=== PATIENT | male | born 1950 | race Two or more races ===

== ENCOUNTER 2021-08-23 10:09 | Inpatient (IN) | payer OTHER, BC ==
[2021-08-23] MEDS ORDERED: PANTOPRAZOLE SODIUM 40 MG VIAL IVPUSH ONE (10:43)
[2021-08-23] MEDS ORDERED: PANTOPRAZOLE SODIUM 40 MG VIAL ONE (10:58)
[2021-08-23 11:02] LABS: BASO % 0.5 % (0-2.0); EOS % 0.2 % (0-4.5); HEMATOCRIT 43.3 % (35.4-49); HEMOGLOBIN 14.3 GM/dL (11.7-16.9); LYMPH % 5.3 % (8-40); MCH 29.7 pg (25.7-33.7); MCHC 33.1 g/dl (32.0-35.9); MEAN CELL VOLUME 89.9 fl (80-96); MEAN PLT VOLUME 10.8 fl (7.5-11.1); MONO % 3.5 % (3.8-10.2); NEUT % 90.5 % (42.8-82.8); PLATELET COUNT 204 10^3/uL (134-434); RBC 4.82 M/mm3 (4.00-5.60); RDW 14.3 % (11.9-15.9); WHITE BLOOD COUNT 15.2 K/mm3 (4.0-10.0)
[2021-08-23 11:09] LABS: INR 1.5 (0.83-1.09); PROTHROMBIN TIME (PATIENT) 17.3 SEC (9.7-13.0)
[2021-08-23 11:28] LABS: CHLORIDE 105 mmol/L (98-107); SODIUM 139 mmol/L (136-145)
[2021-08-23 11:31] LABS: ANION GAP 5 MMOL/L (8-16); BLOOD UREA NITROGEN 26.9 mg/dL (7-18); CALCIUM 8.6 mg/dL (8.5-10.1); CO2 28 mmol/L (21-32); GLUCOSE,RANDOM 203 mg/dL (74-106); MAGNESIUM 2.4 mg/dL (1.8-2.4)
[2021-08-23 11:33] LABS: SGPT/ALT 35 U/L (13-61)
[2021-08-23 11:34] LABS: SGOT/AST 38 U/L (15-37)
[2021-08-23 11:36] LABS: BILIRUBIN,TOTAL 3.9 mg/dL (0.2-1); TOT PROT 6.4 g/dl (6.4-8.2)
[2021-08-23 11:38] LABS: ALK PHOS 126 U/L (45-117)
[2021-08-23] MEDS ORDERED: CEFTRIAXONE 1,000 MG in DEXTROSE 5%-WATER - 50 ML IVPB ONE (11:53)
[2021-08-23] MEDS ORDERED: AZITHROMYCIN IVPB 500 MG in DEXTROSE 5%-WATER - 250 ML IVPB ONE (11:53)
[2021-08-23] MEDS ORDERED: CEFTRIAXONE 1 GM/50 ML BAG ONE (12:08)
[2021-08-23] MEDS ORDERED: AZITHROMYCIN IVPB 500 MG/250 ML BAG IVPB ONE (12:08)
[2021-08-23] MEDS ORDERED: FUROSEMIDE 40 MG/4 ML INJECTABLE VIAL IVPUSH ONE (13:15)
[2021-08-23] MEDS ORDERED: FUROSEMIDE 40 MG/4 ML INJECTABLE VIAL ONE (13:18)
[2021-08-23 14:31] LABS: LACTIC ACID 2.1 mmol/L (0.4-2.0)
[2021-08-23 17:14] VITALS: BMI 23.0
[2021-08-23] MEDS ORDERED: CHLORHEXIDINE GLUCONATE 4% CLEANSER FOR DECOLONIZATION TP SCH (22:00)
[2021-08-23] MEDS: MUPIROCIN 2% TOPICAL OINTMENT FOR DECOLONIZATION NS SCH (22:33)
[2021-08-24 07:38] LABS: BASO % 0.8 % (0-2.0); EOS % 0.9 % (0-4.5); HEMATOCRIT 41.1 % (35.4-49); LYMPH % 11.2 % (8-40); MCH 30.4 pg (25.7-33.7); MEAN CELL VOLUME 89.3 fl (80-96); MEAN PLT VOLUME 10.8 fl (7.5-11.1); MONO % 6.8 % (3.8-10.2); NEUT % 80.3 % (42.8-82.8); PLATELET COUNT 206 10^3/uL (134-434); WHITE BLOOD COUNT 12.9 K/mm3 (4.0-10.0)
[2021-08-24 07:54] LABS: ALBUMIN 2.9 g/dl (3.4-5.0); BLOOD UREA NITROGEN 30.9 mg/dL (7-18); CALCIUM 8.9 mg/dL (8.5-10.1); MAGNESIUM 2.3 mg/dL (1.8-2.4)
[2021-08-24 07:57] LABS: CREATININE 2.1 mg/dL (0.55-1.3); PHOSPHOROUS 3.4 mg/dL (2.5-4.9)
[2021-08-24 07:59] LABS: BILIRUBIN,TOTAL 2.1 mg/dL (0.2-1); TOT PROT 6.4 g/dl (6.4-8.2)
[2021-08-24 09:33] LABS: BILIRUBIN,DIRECT 0.6 mg/dL (0.0-0.2)
[2021-08-24] MEDS ORDERED: PANTOPRAZOLE 40 MG TABLET PO SCH (10:00)
[2021-08-24] MEDS ORDERED: LOSARTAN POTASSIUM 50 MG TABLET PO SCH (11:30)
[2021-08-24] MEDS ORDERED: amLODIPine BESYLATE 10 MG TABLET (FP) PO SCH (11:30)
[2021-08-24] MEDS: MUPIROCIN 2% TOPICAL OINTMENT FOR DECOLONIZATION NS SCH (11:52)
[2021-08-24] MEDS ORDERED: ROSUVASTATIN CA 20 MG TABLET PO SCH (22:00)
[2021-08-24 22:37] VITALS: BP 138/75; PULSE 108; TEMP 99.2
== END 2021-08-24 21:30 | disposition short-term general hospital (02) | DRG 280 ==
LOC: JER 10:09 → JERBED 13:42 → JICU 16:01
PROVIDERS: ADMIT Internal Medicine; ATTEND Internal Medicine
DX: I21.4 Non-ST elevation (NSTEMI) myocardial infarction (principal); J81.0 Acute pulmonary edema; K92.0 Hematemesis; N17.9 Acute kidney failure, unspecified; E78.5 Hyperlipidemia, unspecified; R79.89 Other specified abnormal findings of blood chemistry; D72.829 Elevated white blood cell count, unspecified; I25.10 Atherosclerotic heart disease of native coronary artery without angina pectoris; I12.9 Hypertensive chronic kidney disease with stage 1 through stage 4 chronic kidney disease, or unspecified chronic kidney disease; N18.9 Chronic kidney disease, unspecified; Z95.5 Presence of coronary angioplasty implant and graft
CPT/HCPCS: 36415; 71045-TC-FY; 71250-TC; 76700-TC; 80053; 82248; 82272; 82977; 83605; 83735; 83880; 84100; 84484; 85025; 85610; 86850; 86900; 86901; 87040; 93005; 93010; 99285-25; C9803-CS; U0003; U0005

== ENCOUNTER 2021-09-29 05:18 | Inpatient (IN) | payer OTHER, BC ==
[2021-09-29] MEDS: ALBUTEROL SO4 2.5/IPRATROPIUM 0.5 INH SOL 3 ML VIAL.NEB. NEB SCH (06:23)
[2021-09-29 06:34] LABS: HEMATOCRIT 35.1 % (35.4-49); HEMOGLOBIN 11.3 GM/dL (11.7-16.9); MCH 29.1 pg (25.7-33.7); MEAN CELL VOLUME 90.7 fl (80-96); RBC 3.87 M/mm3 (4.00-5.60); WHITE BLOOD COUNT 16.8 K/mm3 (4.0-10.0)
[2021-09-29 06:35] LABS: BASO % 0.1 % (0-2.0); LYMPH % 5.8 % (8-40); MCHC 32.1 g/dl (32.0-35.9); MEAN PLT VOLUME 10.3 fl (7.5-11.1); MONO % 3.3 % (3.8-10.2); NEUT % 90.8 % (42.8-82.8); PLATELET COUNT 292 10^3/uL (134-434); RDW 15.5 % (11.9-15.9)
[2021-09-29] MEDS ORDERED: FUROSEMIDE 40 MG/4 ML INJECTABLE VIAL IVPUSH ONE (06:48)
[2021-09-29 06:56] LABS: CALCIUM 8.6 mg/dL (8.5-10.1)
[2021-09-29 07:02] LABS: BILIRUBIN,TOTAL 1.3 mg/dL (0.2-1); TOT PROT 6.2 g/dl (6.4-8.2)
[2021-09-29] MEDS ORDERED: FUROSEMIDE 40 MG/4 ML INJECTABLE VIAL ONE ×2 (08:14→15:25)
[2021-09-29 08:18] LABS: CREATININE 2.8 mg/dL (0.55-1.3); N-TERMINAL BNP 46989.7 pg/ml (5-125)
[2021-09-29] MEDS ORDERED: AMIODARONE HCL 400 MG PO SCH (10:30)
[2021-09-29] MEDS ORDERED: AMIODARONE HCL 200 MG TABLET PO SCH (11:00)
[2021-09-29] MEDS ORDERED: NITROGLYCERIN 25MG/D5W 250ML 25 MG/250 ML ML IVPB SCH (11:15)
[2021-09-29 11:22] LABS: MAGNESIUM 2.3 mg/dL (1.8-2.4)
[2021-09-29 11:27] LABS: PHOSPHOROUS 3.6 mg/dL (2.5-4.9)
[2021-09-29] MEDS ORDERED: predniSONE 20 MG TABLET (UD) PO SCH (11:45)
[2021-09-29] MEDS ORDERED: SEVELAMER CARBONATE 800 MG TAB (FP) PO SCH (12:00)
[2021-09-29] MEDS ORDERED: predniSONE 20 MG TABLET (UD) ONE (12:16)
[2021-09-29] MEDS ORDERED: AMIODARONE HCL 200 MG TABLET ONE (12:16)
[2021-09-29] MEDS ORDERED: HEPARIN NA (PORCINE) 5,000 UNITS/ML 1ML VIAL ONE (12:17)
[2021-09-29] MEDS: HEPARIN NA (PORCINE) 5,000 UNITS/ML 1ML VIAL SQ SCH ×3 (12:23→21:29)
[2021-09-29] MEDS: SEVELAMER CARBONATE 800 MG TAB (FP) PO SCH ×3 (12:23→17:47)
[2021-09-29 12:35] LABS: PH,URINE 6.5 (5.0-8.0); URINE APPEARANCE CLEAR; URINE BILIRUBIN NEGATIVE (NEGATIVE); URINE COLOR YELLOW; URINE GLUCOSE (UA) NEGATIVE (NEGATIVE); URINE KETONE NEGATIVE (NEGATIVE); URINE LEUK ESTERASE NEGATIVE (NEGATIVE); URINE NITRITE NEGATIVE (NEGATIVE); URINE PROTEIN NEGATIVE (NEGATIVE); URINE UROBILINOGEN 0.2 mg/dL (0.2-1.0)
[2021-09-29 12:59] LABS: ERYTHROCYTE SEDIMENTATION RATE 7 mm/hr (0-20)
[2021-09-29] MEDS ORDERED: ISOSORBIDE DINITRATE 10 MG TABLET PO SCH (13:00)
[2021-09-29] MEDS ORDERED: FUROSEMIDE 40 MG/4 ML INJECTABLE VIAL IVPUSH SCH (14:00)
[2021-09-29] MEDS: NITROGLYCERIN 25MG/D5W 250ML 25 MG/250 ML ML IVPB SCH (16:19)
[2021-09-29] MEDS: AMIODARONE HCL 200 MG TABLET PO SCH (21:29)
[2021-09-29] MEDS: CHLORHEXIDINE GLUCONATE 4% CLEANSER FOR DECOLONIZATION TP SCH (21:29)
[2021-09-29] MEDS: CARVEDILOL 6.25 MG TABLET (FP) PO SCH (21:29)
[2021-09-29] MEDS: MUPIROCIN 2% TOPICAL OINTMENT FOR DECOLONIZATION NS SCH (21:29)
[2021-09-29] MEDS: ATORVASTATIN CA 80 MG TABLET (FP) PO SCH (21:29)
[2021-09-29] MEDS ORDERED: CARVEDILOL 6.25 MG TABLET (FP) PO SCH (22:00)
[2021-09-29] MEDS ORDERED: CARVEDILOL 3.125 MG TABLET (FP) PO SCH (22:00)
[2021-09-29] MEDS ORDERED: ATORVASTATIN CA 80 MG TABLET (FP) PO SCH (22:00)
[2021-09-30] MEDS: HEPARIN NA (PORCINE) 5,000 UNITS/ML 1ML VIAL SQ SCH ×3 (06:41→21:49)
[2021-09-30] MEDS: FUROSEMIDE 40 MG/4 ML INJECTABLE VIAL IVPUSH SCH ×2 (06:41→14:45)
[2021-09-30 07:14] LABS: BASO % 0.1 % (0-2.0); EOS % 0.1 % (0-4.5); HEMATOCRIT 30.4 % (35.4-49); HEMOGLOBIN 10.1 GM/dL (11.7-16.9); MCH 29.3 pg (25.7-33.7); MEAN CELL VOLUME 88.8 fl (80-96); MEAN PLT VOLUME 10.3 fl (7.5-11.1); MONO % 7.4 % (3.8-10.2); NEUT % 80.4 % (42.8-82.8); PLATELET COUNT 228 10^3/uL (134-434); RBC 3.43 M/mm3 (4.00-5.60); RDW 15.7 % (11.9-15.9); WHITE BLOOD COUNT 9.6 K/mm3 (4.0-10.0)
[2021-09-30 07:24] LABS: INR 1.2 (0.83-1.09); PROTHROMBIN TIME (PATIENT) 13.8 SEC (9.7-13.0)
[2021-09-30 07:38] LABS: CALCIUM 8.6 mg/dL (8.5-10.1)
[2021-09-30 07:40] LABS: ALBUMIN 2.7 g/dl (3.4-5.0); BLOOD UREA NITROGEN 59.4 mg/dL (7-18); MAGNESIUM 2.5 mg/dL (1.8-2.4)
[2021-09-30 07:41] LABS: TOT PROT 5.7 g/dl (6.4-8.2)
[2021-09-30 07:42] LABS: CREATININE 2.7 mg/dL (0.55-1.3); PHOSPHOROUS 4.2 mg/dL (2.5-4.9)
[2021-09-30] MEDS: SEVELAMER CARBONATE 800 MG TAB (FP) PO SCH ×3 (08:38→17:30)
[2021-09-30] MEDS: MUPIROCIN 2% TOPICAL OINTMENT FOR DECOLONIZATION NS SCH ×2 (09:15→21:49)
[2021-09-30] MEDS: CARVEDILOL 6.25 MG TABLET (FP) PO SCH ×2 (09:16→21:49)
[2021-09-30] MEDS: predniSONE 20 MG TABLET (UD) PO SCH (09:16)
[2021-09-30] MEDS: ASPIRIN COATED 81 MG TABLET.EC PO SCH (09:16)
[2021-09-30] MEDS: AMIODARONE HCL 200 MG TABLET PO SCH ×2 (09:16→21:49)
[2021-09-30] MEDS ORDERED: ASPIRIN COATED 81 MG TABLET.EC PO SCH (10:00)
[2021-09-30] MEDS ORDERED: FUROSEMIDE 40 MG/4 ML INJECTABLE VIAL IVPUSH SCH (10:00)
[2021-09-30] MEDS: SODIUM ZIRCONIUM CYCLOSILICATE (LOKELMA) 5 GM PACKET PO SCH ×2 (12:00→21:49)
[2021-09-30] MEDS ORDERED: SODIUM ZIRCONIUM CYCLOSILICATE (LOKELMA) 5 GM PACKET PO SCH (12:30)
[2021-09-30] MEDS: NITROGLYCERIN 25MG/D5W 250ML 25 MG/250 ML ML IVPB SCH (16:05)
[2021-09-30] MEDS: ATORVASTATIN CA 80 MG TABLET (FP) PO SCH (21:49)
[2021-09-30] MEDS: CHLORHEXIDINE GLUCONATE 4% CLEANSER FOR DECOLONIZATION TP SCH (21:49)
[2021-10-01] MEDS ORDERED: hydrALAZINE HCL 20 MG/ML VIAL IVPUSH ONE (02:54)
[2021-10-01] MEDS: HEPARIN NA (PORCINE) 5,000 UNITS/ML 1ML VIAL SQ SCH ×3 (06:24→21:41)
[2021-10-01] MEDS: FUROSEMIDE 40 MG/4 ML INJECTABLE VIAL IVPUSH SCH ×2 (06:24→15:00)
[2021-10-01 07:03] LABS: BASO % 0.2 % (0-2.0); HEMATOCRIT 31.1 % (35.4-49); LYMPH % 12.8 % (8-40); MCH 29.5 pg (25.7-33.7); MCHC 32.3 g/dl (32.0-35.9); MEAN CELL VOLUME 91.2 fl (80-96); MONO % 5.8 % (3.8-10.2); NEUT % 81.2 % (42.8-82.8); PLATELET COUNT 203 10^3/uL (134-434); RBC 3.41 M/mm3 (4.00-5.60); RDW 16.3 % (11.9-15.9); WHITE BLOOD COUNT 8.4 K/mm3 (4.0-10.0)
[2021-10-01 07:20] LABS: CALCIUM 8.5 mg/dL (8.5-10.1)
[2021-10-01 07:21] LABS: BLOOD UREA NITROGEN 55.6 mg/dL (7-18); MAGNESIUM 2.6 mg/dL (1.8-2.4)
[2021-10-01 07:26] LABS: CREATININE 2.6 mg/dL (0.55-1.3)
[2021-10-01] MEDS: SEVELAMER CARBONATE 800 MG TAB (FP) PO SCH ×3 (08:59→17:28)
[2021-10-01] MEDS: AMIODARONE HCL 200 MG TABLET PO SCH ×2 (09:24→21:40)
[2021-10-01] MEDS: predniSONE 20 MG TABLET (UD) PO SCH (09:24)
[2021-10-01] MEDS: MUPIROCIN 2% TOPICAL OINTMENT FOR DECOLONIZATION NS SCH ×2 (09:25→21:40)
[2021-10-01] MEDS: ASPIRIN COATED 81 MG TABLET.EC PO SCH (09:25)
[2021-10-01] MEDS: CARVEDILOL 6.25 MG TABLET (FP) PO SCH ×2 (09:25→21:40)
[2021-10-01] MEDS: SODIUM ZIRCONIUM CYCLOSILICATE (LOKELMA) 5 GM PACKET PO SCH (09:31)
[2021-10-01 13:12] VITALS: BMI 20.5
[2021-10-01] MEDS ORDERED: DOCUSATE SODIUM 100 MG CAPSULE (FP) PO PRN (16:23)
[2021-10-01] MEDS: POLYETHYLENE GLYCOL (HEALTHYLAX) 3350 17 GM PACKET PO SCH (17:28)
[2021-10-01] MEDS: CHLORHEXIDINE GLUCONATE 4% CLEANSER FOR DECOLONIZATION TP SCH (21:40)
[2021-10-01] MEDS: ATORVASTATIN CA 80 MG TABLET (FP) PO SCH (21:40)
[2021-10-02] MEDS: HEPARIN NA (PORCINE) 5,000 UNITS/ML 1ML VIAL SQ SCH ×3 (05:49→21:30)
[2021-10-02] MEDS: FUROSEMIDE 40 MG TABLET (FP) PO SCH ×2 (05:49→14:12)
[2021-10-02 06:45] LABS: BASO % 0.2 % (0-2.0); EOS % 0.1 % (0-4.5); HEMATOCRIT 30.9 % (35.4-49); HEMOGLOBIN 10.1 GM/dL (11.7-16.9); LYMPH % 16.3 % (8-40); MCH 29.5 pg (25.7-33.7); MCHC 32.8 g/dl (32.0-35.9); MEAN CELL VOLUME 89.7 fl (80-96); MEAN PLT VOLUME 10.5 fl (7.5-11.1); MONO % 7.3 % (3.8-10.2); NEUT % 76.1 % (42.8-82.8); PLATELET COUNT 189 10^3/uL (134-434); RBC 3.44 M/mm3 (4.00-5.60); RDW 15.5 % (11.9-15.9); WHITE BLOOD COUNT 8.4 K/mm3 (4.0-10.0)
[2021-10-02 07:08] LABS: ALBUMIN 2.6 g/dl (3.4-5.0); BLOOD UREA NITROGEN 62.7 mg/dL (7-18); CALCIUM 8.5 mg/dL (8.5-10.1); MAGNESIUM 2.6 mg/dL (1.8-2.4)
[2021-10-02 07:11] LABS: CREATININE 2.7 mg/dL (0.55-1.3)
[2021-10-02 07:13] LABS: BILIRUBIN,TOTAL 0.9 mg/dL (0.2-1); TOT PROT 5.6 g/dl (6.4-8.2)
[2021-10-02] MEDS: SEVELAMER CARBONATE 800 MG TAB (FP) PO SCH ×3 (08:52→17:40)
[2021-10-02] MEDS: POLYETHYLENE GLYCOL (HEALTHYLAX) 3350 17 GM PACKET PO SCH (09:22)
[2021-10-02] MEDS: CARVEDILOL 6.25 MG TABLET (FP) PO SCH ×2 (09:22→21:30)
[2021-10-02] MEDS: AMIODARONE HCL 200 MG TABLET PO SCH ×2 (09:22→21:30)
[2021-10-02] MEDS: ASPIRIN COATED 81 MG TABLET.EC PO SCH (09:22)
[2021-10-02] MEDS: predniSONE 20 MG TABLET (UD) PO SCH (09:22)
[2021-10-02] MEDS: ATORVASTATIN CA 80 MG TABLET (FP) PO SCH (21:30)
[2021-10-03] MEDS: FUROSEMIDE 40 MG TABLET (FP) PO SCH ×2 (06:19→13:54)
[2021-10-03] MEDS: HEPARIN NA (PORCINE) 5,000 UNITS/ML 1ML VIAL SQ SCH ×4 (06:19→22:00)
[2021-10-03 07:56] LABS: HEMATOCRIT 33.5 % (35.4-49); HEMOGLOBIN 10.7 GM/dL (11.7-16.9); MCH 28.8 pg (25.7-33.7); MCHC 31.9 g/dl (32.0-35.9); MEAN CELL VOLUME 90.1 fl (80-96); MEAN PLT VOLUME 10.7 fl (7.5-11.1); PLATELET COUNT 221 10^3/uL (134-434); RBC 3.71 M/mm3 (4.00-5.60); RDW 15.9 % (11.9-15.9); WHITE BLOOD COUNT 11.4 K/mm3 (4.0-10.0)
[2021-10-03 08:14] LABS: CALCIUM 8.9 mg/dL (8.5-10.1)
[2021-10-03 08:15] LABS: BLOOD UREA NITROGEN 64.7 mg/dL (7-18)
[2021-10-03 08:17] LABS: CREATININE 2.7 mg/dL (0.55-1.3)
[2021-10-03 08:19] LABS: BILIRUBIN,TOTAL 0.8 mg/dL (0.2-1); TOT PROT 6.5 g/dl (6.4-8.2)
[2021-10-03 08:30] LABS: ALBUMIN 3.2 g/dl (3.4-5.0)
[2021-10-03] MEDS: SEVELAMER CARBONATE 800 MG TAB (FP) PO SCH ×3 (09:00→18:16)
[2021-10-03] MEDS: predniSONE 20 MG TABLET (UD) PO SCH (09:00)
[2021-10-03] MEDS: ASPIRIN COATED 81 MG TABLET.EC PO SCH (09:00)
[2021-10-03] MEDS: CARVEDILOL 6.25 MG TABLET (FP) PO SCH ×2 (09:00→21:24)
[2021-10-03] MEDS: AMIODARONE HCL 200 MG TABLET PO SCH ×2 (09:01→21:23)
[2021-10-03] MEDS: POLYETHYLENE GLYCOL (HEALTHYLAX) 3350 17 GM PACKET PO SCH (09:01)
[2021-10-03] MEDS: ATORVASTATIN CA 80 MG TABLET (FP) PO SCH (21:24)
[2021-10-04] MEDS: HEPARIN NA (PORCINE) 5,000 UNITS/ML 1ML VIAL SQ SCH ×2 (06:18→14:48)
[2021-10-04] MEDS: FUROSEMIDE 40 MG TABLET (FP) PO SCH ×2 (06:20→14:53)
[2021-10-04 07:42] LABS: BASO % 0.3 % (0-2.0); EOS % 0.1 % (0-4.5); HEMOGLOBIN 10.6 GM/dL (11.7-16.9); LYMPH % 16.5 % (8-40); MCH 28.9 pg (25.7-33.7); MCHC 32.1 g/dl (32.0-35.9); MEAN CELL VOLUME 89.9 fl (80-96); MEAN PLT VOLUME 10.9 fl (7.5-11.1); MONO % 6.3 % (3.8-10.2); NEUT % 76.8 % (42.8-82.8); PLATELET COUNT 202 10^3/uL (134-434); RBC 3.67 M/mm3 (4.00-5.60); RDW 15.5 % (11.9-15.9); WHITE BLOOD COUNT 9.8 K/mm3 (4.0-10.0)
[2021-10-04 08:00] LABS: BLOOD UREA NITROGEN 66.6 mg/dL (7-18); CALCIUM 8.9 mg/dL (8.5-10.1)
[2021-10-04 08:03] LABS: CREATININE 2.8 mg/dL (0.55-1.3)
[2021-10-04] MEDS: SEVELAMER CARBONATE 800 MG TAB (FP) PO SCH ×2 (08:42→12:43)
[2021-10-04] MEDS: POLYETHYLENE GLYCOL (HEALTHYLAX) 3350 17 GM PACKET PO SCH (09:40)
[2021-10-04] MEDS ORDERED: predniSONE 20 MG TABLET (UD) PO SCH (10:00)
[2021-10-04] MEDS ORDERED: AMIODARONE HCL 200 MG TABLET PO SCH (10:00)
[2021-10-04] MEDS ORDERED: CARVEDILOL 12.5 MG TABLET (FP) PO SCH (10:00)
[2021-10-04] MEDS ORDERED: ASPIRIN COATED 81 MG TABLET.EC PO SCH (10:00)
[2021-10-04 15:04] VITALS: BP 110/50; PULSE 55
[2021-10-04 15:06] VITALS: TEMP 97.6
[2021-10-04] MEDS ORDERED: ATORVASTATIN CA 80 MG TABLET (FP) PO SCH (22:00)
[2021-10-05 16:08] LABS: ATYPICAL pANCA <1:20 titer (Neg:<1:20); C-ANCA <1:20 titer (Neg:<1:20)
== END 2021-10-04 15:37 | disposition home or self-care (01) | DRG 291 ==
LOC: JER 05:18 → JERBED 09:13 → JICU 17:19 → J4S 10-03 20:54
PROVIDERS: ADMIT Internal Medicine; ATTEND Internal Medicine
DX: I13.0 Hypertensive heart and chronic kidney disease with heart failure and stage 1 through stage 4 chronic kidney disease, or unspecified chronic kidney disease (principal); I50.23 Acute on chronic systolic (congestive) heart failure; J96.01 Acute respiratory failure with hypoxia; J81.0 Acute pulmonary edema; E87.0 Hyperosmolality and hypernatremia; B44.9 Aspergillosis, unspecified; N17.9 Acute kidney failure, unspecified; N18.9 Chronic kidney disease, unspecified; E78.5 Hyperlipidemia, unspecified; I25.10 Atherosclerotic heart disease of native coronary artery without angina pectoris; I48.0 Paroxysmal atrial fibrillation; D72.829 Elevated white blood cell count, unspecified; E87.5 Hyperkalemia; E83.39 Other disorders of phosphorus metabolism; N28.1 Cyst of kidney, acquired; I42.0 Dilated cardiomyopathy; Z95.1 Presence of aortocoronary bypass graft; Z95.5 Presence of coronary angioplasty implant and graft; R94.5 Abnormal results of liver function studies
CPT/HCPCS: 0241U-QW; 36415; 71045-TC-FY; 71250-TC; 76700-TC; 80048; 80053; 80061; 81003; 82436; 82728; 83036; 83516; 83520; 83540; 83550; 83605; 83735; 83880; 84100; 84133; 84300; 84443; 84484; 84540; 85025; 85027; 85045; 85610; 85651; 85730; 86038; 86225; 86256; 87040; 87086; 87305; 87449; 93005; 93010; 93306-TC; 99285-25; J1644

== ENCOUNTER 2021-10-10 14:22 | Inpatient (IN) | payer OTHER, BC ==
[2021-10-10 16:45] LABS: VENOUS BASE EXCESS 2.6 mmol/L (-2-2); VENOUS PCO2 45.5 mmHg (38-52); VENOUS PH 7.404 (7.310-7.410)
[2021-10-10 16:48] LABS: BASO % 0.1 % (0-2.0); HEMATOCRIT 36.1 % (35.4-49); HEMOGLOBIN 11.6 GM/dL (11.7-16.9); LYMPH % 6.9 % (8-40); MCH 28.2 pg (25.7-33.7); MCHC 32.1 g/dl (32.0-35.9); MEAN CELL VOLUME 87.8 fl (80-96); MEAN PLT VOLUME 10.1 fl (7.5-11.1); MONO % 2.7 % (3.8-10.2); NEUT % 90.3 % (42.8-82.8); PLATELET COUNT 196 10^3/uL (134-434); RBC 4.11 M/mm3 (4.00-5.60); RDW 15.2 % (11.9-15.9)
[2021-10-10 16:55] LABS: INR 1.12 (0.83-1.09); PROTHROMBIN TIME (PATIENT) 12.9 SEC (9.7-13.0)
[2021-10-10 16:58] LABS: ACTIVATED PTT 24.6 SECONDS (25.2-36.5)
[2021-10-10 17:06] LABS: CHLORIDE 102 mmol/L (98-107); SODIUM 138 mmol/L (136-145)
[2021-10-10 17:08] LABS: CALCIUM 8.9 mg/dL (8.5-10.1)
[2021-10-10 17:09] LABS: ALBUMIN 3.1 g/dl (3.4-5.0); ANION GAP 7 MMOL/L (8-16); BLOOD UREA NITROGEN 50.1 mg/dL (7-18); CO2 29 mmol/L (21-32); GLUCOSE,RANDOM 144 mg/dL (74-106); MAGNESIUM 2.5 mg/dL (1.8-2.4)
[2021-10-10 17:12] LABS: CREATININE 2.5 mg/dL (0.55-1.3); SGOT/AST 31 U/L (15-37); SGPT/ALT 66 U/L (13-61)
[2021-10-10 17:13] LABS: BILIRUBIN,TOTAL 1.6 mg/dL (0.2-1); TOT PROT 6.8 g/dl (6.4-8.2)
[2021-10-10 17:33] LABS: ALK PHOS 150 U/L (45-117); N-TERMINAL BNP 47855.6 pg/ml (5-125)
[2021-10-10] MEDS ORDERED: SODIUM ZIRCONIUM CYCLOSILICATE (LOKELMA) 5 GM PACKET PO ONE (18:05)
[2021-10-10] MEDS ORDERED: SODIUM ZIRCONIUM CYCLOSILICATE (LOKELMA) 5 GM PACKET ONE (18:18)
[2021-10-10] MEDS ORDERED: ASPIRIN 81 MG CHEWABLE TABLETS PO ONE (18:27)
[2021-10-10] MEDS ORDERED: ASPIRIN 81 MG CHEWABLE TABLETS ONE (18:29)
[2021-10-10] MEDS ORDERED: FUROSEMIDE 40 MG/4 ML INJECTABLE VIAL IVPUSH ONE (21:25)
[2021-10-10] MEDS ORDERED: FUROSEMIDE 40 MG/4 ML INJECTABLE VIAL ONE (21:34)
[2021-10-10] MEDS: HEPARIN NA (PORCINE) 5,000 UNITS/ML 1ML VIAL SQ SCH (22:03)
[2021-10-10] MEDS ORDERED: HEPARIN NA (PORCINE) 5,000 UNITS/ML 1ML VIAL ONE (22:04)
[2021-10-11] MEDS: HEPARIN NA (PORCINE) 5,000 UNITS/ML 1ML VIAL SQ SCH ×2 (06:16→22:18)
[2021-10-11 08:19] LABS: BASO % 0.4 % (0-2.0); EOS % 0.4 % (0-4.5); HEMATOCRIT 33.3 % (35.4-49); HEMOGLOBIN 10.9 GM/dL (11.7-16.9); LYMPH % 18.3 % (8-40); MCH 28.7 pg (25.7-33.7); MCHC 32.7 g/dl (32.0-35.9); MEAN CELL VOLUME 87.9 fl (80-96); MEAN PLT VOLUME 10.8 fl (7.5-11.1); MONO % 6.5 % (3.8-10.2); NEUT % 74.4 % (42.8-82.8); PLATELET COUNT 168 10^3/uL (134-434); RBC 3.79 M/mm3 (4.00-5.60); RDW 15.4 % (11.9-15.9); WHITE BLOOD COUNT 10.9 K/mm3 (4.0-10.0)
[2021-10-11 08:51] LABS: ALBUMIN 2.8 g/dl (3.4-5.0); CALCIUM 8.2 mg/dL (8.5-10.1)
[2021-10-11 08:52] LABS: MAGNESIUM 2.5 mg/dL (1.8-2.4)
[2021-10-11 08:54] LABS: PHOSPHOROUS 3.7 mg/dL (2.5-4.9)
[2021-10-11 08:55] LABS: CREATININE 2.5 mg/dL (0.55-1.3)
[2021-10-11 08:56] LABS: BILIRUBIN,TOTAL 1.5 mg/dL (0.2-1); TOT PROT 5.7 g/dl (6.4-8.2)
[2021-10-11] MEDS: CARVEDILOL 12.5 MG TABLET (FP) PO SCH ×2 (11:16→22:18)
[2021-10-11] MEDS: AMIODARONE HCL 200 MG TABLET PO SCH ×2 (11:16→22:18)
[2021-10-11] MEDS: ASPIRIN COATED 81 MG TABLET.EC PO SCH (11:16)
[2021-10-11 11:19] VITALS: BMI 19.2
[2021-10-11] MEDS: FUROSEMIDE 40 MG/4 ML INJECTABLE VIAL IVPUSH SCH (13:48)
[2021-10-11] MEDS: predniSONE 10 MG TABLET (UD) PO SCH (17:29)
[2021-10-11] MEDS ORDERED: ATORVASTATIN CA 80 MG TABLET (FP) PO SCH (22:00)
[2021-10-12] MEDS: FUROSEMIDE 40 MG/4 ML INJECTABLE VIAL IVPUSH SCH ×2 (06:26→14:17)
[2021-10-12] MEDS: HEPARIN NA (PORCINE) 5,000 UNITS/ML 1ML VIAL SQ SCH ×2 (06:26→13:41)
[2021-10-12 07:31] LABS: BASO % 0.6 % (0-2.0); EOS % 0.1 % (0-4.5); HEMATOCRIT 32.8 % (35.4-49); HEMOGLOBIN 10.6 GM/dL (11.7-16.9); LYMPH % 13.6 % (8-40); MCH 28.5 pg (25.7-33.7); MCHC 32.3 g/dl (32.0-35.9); MEAN CELL VOLUME 88.3 fl (80-96); MEAN PLT VOLUME 11.2 fl (7.5-11.1); MONO % 4.4 % (3.8-10.2); NEUT % 81.3 % (42.8-82.8); PLATELET COUNT 179 10^3/uL (134-434); RBC 3.72 M/mm3 (4.00-5.60); RDW 15.5 % (11.9-15.9); WHITE BLOOD COUNT 9.9 K/mm3 (4.0-10.0)
[2021-10-12 08:09] LABS: ALBUMIN 2.5 g/dl (3.4-5.0); BLOOD UREA NITROGEN 52.3 mg/dL (7-18); CALCIUM 8.2 mg/dL (8.5-10.1)
[2021-10-12 08:10] LABS: CREATININE 2.4 mg/dL (0.55-1.3); MAGNESIUM 2.6 mg/dL (1.8-2.4)
[2021-10-12 08:12] LABS: BILIRUBIN,TOTAL 1.6 mg/dL (0.2-1); PHOSPHOROUS 4.4 mg/dL (2.5-4.9); TOT PROT 5.5 g/dl (6.4-8.2)
[2021-10-12] MEDS: ASPIRIN COATED 81 MG TABLET.EC PO SCH (09:25)
[2021-10-12] MEDS: AMIODARONE HCL 200 MG TABLET PO SCH (09:25)
[2021-10-12] MEDS: CARVEDILOL 12.5 MG TABLET (FP) PO SCH (09:25)
[2021-10-12] MEDS: predniSONE 10 MG TABLET (UD) PO SCH (09:25)
[2021-10-12] MEDS ORDERED: SACUBITRIL/VALSARTAN 24 MG-26 MG TABLET PO SCH (10:00)
[2021-10-12 18:49] VITALS: BP 120/73; PULSE 92; TEMP 97.7
[2021-10-13] MEDS ORDERED: AMIODARONE HCL 200 MG TABLET PO SCH (10:00)
== END 2021-10-12 18:48 | disposition home health service (06) | DRG 291 ==
LOC: JER 14:22 → JERBED 18:08 → J4W 10-11 00:04 → UNDODISIN 10-11 14:19
PROVIDERS: ADMIT Internal Medicine; ATTEND Internal Medicine
DX: I13.0 Hypertensive heart and chronic kidney disease with heart failure and stage 1 through stage 4 chronic kidney disease, or unspecified chronic kidney disease (principal); I50.23 Acute on chronic systolic (congestive) heart failure; J81.0 Acute pulmonary edema; I24.8 Other forms of acute ischemic heart disease; E87.0 Hyperosmolality and hypernatremia; I25.10 Atherosclerotic heart disease of native coronary artery without angina pectoris; E78.5 Hyperlipidemia, unspecified; I48.0 Paroxysmal atrial fibrillation; E87.5 Hyperkalemia; N18.9 Chronic kidney disease, unspecified; R74.01 Elevation of levels of liver transaminase levels; Z95.1 Presence of aortocoronary bypass graft; Z98.61 Coronary angioplasty status
CPT/HCPCS: 0241U-QW; 36415; 71045-TC-FY; 80053; 80061; 82803; 83735; 83880; 84100; 84443; 84484; 85025; 85610; 85730; 86705; 87340; 87517; 87902; 93005; 93010; 94761; 97116-GP; 97161-GP; 99285-25; J1644

== ENCOUNTER 2021-11-17 09:40 | Observation (INO) | payer OTHER, BC ==
[2021-11-17 10:06] VITALS: BMI 20.5
[2021-11-17 11:42] LABS: BASO % 0.5 % (0-2.0); EOS % 0.1 % (0-4.5); HEMOGLOBIN 12.2 GM/dL (11.7-16.9); LYMPH % 11.8 % (8-40); MCH 28.2 pg (25.7-33.7); MEAN CELL VOLUME 85.5 fl (80-96); MEAN PLT VOLUME 8.5 fl (7.5-11.1); MONO % 5.6 % (3.8-10.2); PLATELET COUNT 293 10^3/uL (134-434); RBC 4.33 M/mm3 (4.00-5.60); RDW 17.1 % (11.9-15.9); WHITE BLOOD COUNT 17.9 K/mm3 (4.0-10.0)
[2021-11-17 11:49] LABS: INR 1.03 (0.83-1.09); PROTHROMBIN TIME (PATIENT) 11.9 SEC (9.7-13.0)
[2021-11-17 11:51] LABS: ACTIVATED PTT 28.9 SECONDS (25.2-36.5)
[2021-11-17 12:31] LABS: CALCIUM 9.4 mg/dL (8.5-10.1)
[2021-11-17 12:32] LABS: ALBUMIN 3.7 g/dl (3.4-5.0); BLOOD UREA NITROGEN 23.3 mg/dL (7-18); MAGNESIUM 2.2 mg/dL (1.8-2.4)
[2021-11-17 12:35] LABS: CREATININE 2.3 mg/dL (0.55-1.3)
[2021-11-17 12:37] LABS: BILIRUBIN,TOTAL 1.5 mg/dL (0.2-1); TOT PROT 8.2 g/dl (6.4-8.2)
[2021-11-17 12:40] LABS: N-TERMINAL BNP 17614.8 pg/ml (5-125)
[2021-11-17] MEDS ORDERED: FUROSEMIDE 40 MG/4 ML INJECTABLE VIAL IVPUSH ONE (12:42)
[2021-11-17] MEDS ORDERED: FUROSEMIDE 40 MG/4 ML INJECTABLE VIAL ONE (12:53)
[2021-11-17 15:56] LABS: PH,URINE 6.5 (5.0-8.0); URINE APPEARANCE CLEAR; URINE BILIRUBIN NEGATIVE (NEGATIVE); URINE COLOR YELLOW; URINE GLUCOSE (UA) NEGATIVE (NEGATIVE); URINE KETONE NEGATIVE (NEGATIVE); URINE LEUK ESTERASE NEGATIVE (NEGATIVE); URINE NITRITE NEGATIVE (NEGATIVE); URINE PROTEIN NEGATIVE (NEGATIVE); URINE UROBILINOGEN 0.2 mg/dL (0.2-1.0)
[2021-11-17] MEDS: SEVELAMER CARBONATE 800 MG TAB (FP) PO SCH (20:00)
[2021-11-17] MEDS ORDERED: CARVEDILOL 6.25 MG TABLET (FP) ONE (21:27)
[2021-11-17] MEDS ORDERED: ATORVASTATIN CA 80 MG TABLET (FP) ONE (21:27)
[2021-11-17] MEDS ORDERED: ATORVASTATIN CA 80 MG TABLET (FP) PO SCH (22:00)
[2021-11-17] MEDS: CARVEDILOL 6.25 MG TABLET (FP) PO SCH (22:43)
[2021-11-17] MEDS: SACUBITRIL/VALSARTAN 24 MG-26 MG TABLET PO SCH (22:43)
[2021-11-18] MEDS: FUROSEMIDE 40 MG TABLET (FP) PO SCH ×2 (08:10→15:28)
[2021-11-18] MEDS: SEVELAMER CARBONATE 800 MG TAB (FP) PO SCH ×2 (08:11→12:06)
[2021-11-18 09:19] LABS: BASO % 1.4 % (0-2.0); EOS % 1.2 % (0-4.5); HEMATOCRIT 34.2 % (35.4-49); HEMOGLOBIN 11.2 GM/dL (11.7-16.9); LYMPH % 21.7 % (8-40); MCH 27.7 pg (25.7-33.7); MCHC 32.7 g/dl (32.0-35.9); MEAN CELL VOLUME 84.7 fl (80-96); MEAN PLT VOLUME 9.2 fl (7.5-11.1); MONO % 6.4 % (3.8-10.2); NEUT % 69.3 % (42.8-82.8); PLATELET COUNT 250 10^3/uL (134-434); RBC 4.03 M/mm3 (4.00-5.60); RDW 16.6 % (11.9-15.9); WHITE BLOOD COUNT 10.4 K/mm3 (4.0-10.0)
[2021-11-18] MEDS: CARVEDILOL 6.25 MG TABLET (FP) PO SCH (09:40)
[2021-11-18] MEDS: SACUBITRIL/VALSARTAN 24 MG-26 MG TABLET PO SCH (09:40)
[2021-11-18] MEDS ORDERED: predniSONE 5 MG TABLET (UD) PO SCH (10:00)
[2021-11-18] MEDS ORDERED: AMIODARONE HCL 200 MG TABLET PO SCH (10:00)
[2021-11-18] MEDS ORDERED: FAMOTIDINE 10 MG TABLET PO SCH (10:00)
[2021-11-18 10:07] LABS: CALCIUM 8.9 mg/dL (8.5-10.1)
[2021-11-18 10:08] LABS: BLOOD UREA NITROGEN 28.3 mg/dL (7-18); MAGNESIUM 2.2 mg/dL (1.8-2.4)
[2021-11-18 10:11] LABS: CREATININE 2.6 mg/dL (0.55-1.3); PHOSPHOROUS 3.1 mg/dL (2.5-4.9)
[2021-11-18 10:12] LABS: BILIRUBIN,TOTAL 1.8 mg/dL (0.2-1)
[2021-11-18 10:13] LABS: TOT PROT 6.6 g/dl (6.4-8.2)
[2021-11-18 10:16] LABS: ALBUMIN 2.8 g/dl (3.4-5.0)
[2021-11-18] MEDS ORDERED: SEVELAMER CARBONATE 800 MG TAB (FP) PO SCH (14:01)
[2021-11-18 15:40] VITALS: BP 123/56; PULSE 60; RESP 22; TEMP 97.5
== END 2021-11-18 18:30 | disposition home or self-care (01) ==
LOC: JER 09:40 → INTOOBSV 13:46 → JERBED 13:46 → UNDOADMOB 13:46 → JERBED 17:01 → J4W 11-18 07:11
PROVIDERS: ADMIT Internal Medicine; ATTEND Internal Medicine
PROC: 3E033GC Introduction of Other Therapeutic Substance into Peripheral Vein, Percutaneous Approach (ICD-10-PCS; principal; 2021-11-17)
DX: I25.10 Atherosclerotic heart disease of native coronary artery without angina pectoris (principal); I16.0 Hypertensive urgency; E78.5 Hyperlipidemia, unspecified; I11.0 Hypertensive heart disease with heart failure; Z95.5 Presence of coronary angioplasty implant and graft; Z95.1 Presence of aortocoronary bypass graft; I48.0 Paroxysmal atrial fibrillation; Z29.8 Encounter for other specified prophylactic measures
CPT/HCPCS: 36415; 70450-TC; 71046-TC-FY; 80053; 81003; 83036; 83735; 83880; 84100; 84439; 84443; 84484; 85025; 85610; 85730; 87040; 87086; 87651; 93005; 93010; 96374; 99285-25; C9803-CS; G0378; U0003; U0005

== ENCOUNTER 2024-05-27 07:23 | Inpatient (IN) | payer OTHER, BC ==
[2024-05-27 08:40] LABS: HEMATOCRIT 37.9 % (35.4-49); HEMOGLOBIN 11.9 GM/dL (11.7-16.9); MCH 28.1 pg (25.7-33.7); MCHC 31.3 g/dl (32.0-35.9); MEAN CELL VOLUME 89.8 fl (80-96); MEAN PLT VOLUME 9.4 fl (7.5-11.1); PLATELET COUNT 218 10^3/uL (134-434); RBC 4.22 M/mm3 (4.00-5.60); WHITE BLOOD COUNT 9.7 K/mm3 (4.0-10.0)
[2024-05-27 08:43] LABS: INR 2.28 (0.83-1.09); PROTHROMBIN TIME (PATIENT) 24.9 SEC (9.7-13.0)
[2024-05-27 08:46] LABS: ACTIVATED PTT 37.2 SECONDS (25.2-36.5)
[2024-05-27 08:55] LABS: POTASSIUM 5.4 mmol/L (3.5-5.1)
[2024-05-27 08:59] LABS: ALBUMIN 3.3 g/dl (3.4-5.0); BLOOD UREA NITROGEN 28.8 mg/dL (7-18); MAGNESIUM 2.3 mg/dL (1.8-2.4)
[2024-05-27 09:01] LABS: CREATININE 2.1 mg/dL (0.55-1.3)
[2024-05-27 09:03] LABS: BILIRUBIN,TOTAL 3.5 mg/dL (0.2-1)
[2024-05-27 09:20] LABS: N-TERMINAL BNP 38298.8 pg/ml (5-450)
[2024-05-27] MEDS ORDERED: FUROSEMIDE 40 MG/4 ML INJECTABLE VIAL IVPUSH SCH ×2 (10:39→22:00)
[2024-05-27] MEDS: SODIUM ZIRCONIUM CYCLOSILICATE (LOKELMA) 5 GM PACKET PO ONE (10:45)
[2024-05-27] MEDS ORDERED: PIPERACILLIN/TAZOB 3.375 GM 3.375 GM/50 ML BAG IVPB ONE (11:25)
[2024-05-27] MEDS ORDERED: SODIUM ZIRCONIUM CYCLOSILICATE (LOKELMA) 10 GM PACKET ONE (11:26)
[2024-05-27] MEDS ORDERED: FUROSEMIDE 40 MG/4 ML INJECTABLE VIAL ONE ×2 (14:57→22:47)
[2024-05-27] MEDS: FUROSEMIDE 40 MG/4 ML INJECTABLE VIAL IVPUSH ONE (15:04)
[2024-05-27] MEDS: FUROSEMIDE 40 MG/4 ML INJECTABLE VIAL IVPUSH SCH ×2 (15:30→22:56)
[2024-05-27] MEDS ORDERED: CARVEDILOL 25 MG TABLET (FP) ONE (22:47)
[2024-05-27] MEDS ORDERED: SACUBITRIL/VALSARTAN 24 MG-26 MG TABLET ONE (22:47)
[2024-05-27] MEDS ORDERED: APIXABAN 5 MG TABLET ONE (22:47)
[2024-05-27] MEDS ORDERED: ATORVASTATIN CA 80 MG TABLET (FP) ONE (22:47)
[2024-05-27] MEDS: CARVEDILOL 12.5 MG TABLET (FP) PO SCH (22:56)
[2024-05-27] MEDS: SACUBITRIL/VALSARTAN 24 MG-26 MG TABLET PO SCH (22:56)
[2024-05-27] MEDS: APIXABAN 5 MG TABLET PO SCH (22:56)
[2024-05-27] MEDS: ATORVASTATIN CA 80 MG TABLET (FP) PO SCH (22:57)
[2024-05-28] MEDS ORDERED: FUROSEMIDE 40 MG/4 ML INJECTABLE VIAL ONE ×2 (06:36→17:07)
[2024-05-28 07:25] LABS: HEMATOCRIT 37.3 % (35.4-49); HEMOGLOBIN 11.8 GM/dL (11.7-16.9); MCH 28.1 pg (25.7-33.7); MCHC 31.6 g/dl (32.0-35.9); MEAN PLT VOLUME 9.5 fl (7.5-11.1); PLATELET COUNT 208 10^3/uL (134-434); RBC 4.19 M/mm3 (4.00-5.60); RDW 16.7 % (11.9-15.9); WHITE BLOOD COUNT 7.3 K/mm3 (4.0-10.0)
[2024-05-28 07:35] LABS: POTASSIUM 4.4 mmol/L (3.5-5.1)
[2024-05-28 07:40] LABS: ALBUMIN 3.3 g/dl (3.4-5.0); CALCIUM 9.1 mg/dL (8.5-10.1)
[2024-05-28 07:41] LABS: BLOOD UREA NITROGEN 32.4 mg/dL (7-18); MAGNESIUM 2.4 mg/dL (1.8-2.4)
[2024-05-28 07:43] LABS: CREATININE 2.1 mg/dL (0.55-1.3)
[2024-05-28 07:44] LABS: PHOSPHOROUS 3.7 mg/dL (2.5-4.9)
[2024-05-28 07:45] LABS: BILIRUBIN,TOTAL 3.7 mg/dL (0.2-1); TOT PROT 6.7 g/dl (6.4-8.2)
[2024-05-28 08:39] LABS: BILIRUBIN,DIRECT 0.5 mg/dL (0.0-0.2)
[2024-05-28] MEDS ORDERED: APIXABAN 2.5 MG TABLET ONE (09:30)
[2024-05-28] MEDS ORDERED: CARVEDILOL 6.25 MG TABLET (FP) ONE (09:30)
[2024-05-28] MEDS: APIXABAN 2.5 MG TABLET PO SCH (09:34)
[2024-05-28] MEDS: EMPAGLIFLOZIN (JARDIANCE) 10 MG TABLET PO SCH (10:17)
[2024-05-28] MEDS: FUROSEMIDE 40 MG/4 ML INJECTABLE VIAL IVPUSH SCH (17:23)
[2024-05-28] MEDS ORDERED: LIDOCAINE 4% PATCH TP ONE (17:54)
[2024-05-28] MEDS: LIDOCAINE 4% PATCH TP SCH (17:56)
[2024-05-28] MEDS ORDERED: FUROSEMIDE 40 MG/4 ML INJECTABLE VIAL IVPUSH SCH (18:00)
[2024-05-28 20:20] LABS: BASO % 0.7 % (0-2.0); EOS % 2.4 % (0-4.5); HEMATOCRIT 37.8 % (35.4-49); HEMOGLOBIN 12.1 GM/dL (11.7-16.9); LYMPH % 12.3 % (8-40); MCH 28.4 pg (25.7-33.7); MCHC 32.1 g/dl (32.0-35.9); MEAN CELL VOLUME 88.5 fl (80-96); MEAN PLT VOLUME 9.5 fl (7.5-11.1); MONO % 6.5 % (3.8-10.2); NEUT % 78.1 % (42.8-82.8); PLATELET COUNT 212 10^3/uL (134-434); RBC 4.27 M/mm3 (4.00-5.60); RDW 17.2 % (11.9-15.9); WHITE BLOOD COUNT 6.6 K/mm3 (4.0-10.0)
[2024-05-28 20:40] LABS: POTASSIUM 4.3 mmol/L (3.5-5.1)
[2024-05-28 20:42] LABS: ALBUMIN 3.1 g/dl (3.4-5.0); CALCIUM 8.7 mg/dL (8.5-10.1)
[2024-05-28 20:43] LABS: BLOOD UREA NITROGEN 34.9 mg/dL (7-18); MAGNESIUM 2.3 mg/dL (1.8-2.4)
[2024-05-28 20:46] LABS: CREATININE 2.3 mg/dL (0.55-1.3); PHOSPHOROUS 3.3 mg/dL (2.5-4.9)
[2024-05-28 20:47] LABS: TOT PROT 6.4 g/dl (6.4-8.2)
[2024-05-28] MEDS: INSULIN (NOVOLOG) ASPART 100 UNITS/ML 10ML VIAL SQ SCH (22:45)
[2024-05-28] MEDS: LIDOCAINE PATCH REMOVAL MC SCH (22:45)
[2024-05-29 08:08] LABS: BILIRUBIN,DIRECT 0.4 mg/dL (0.0-0.2)
[2024-05-29 08:10] LABS: BILIRUBIN,TOTAL 2.8 mg/dL (0.2-1)
[2024-05-29 17:08] LABS: URINE APPEARANCE CLEAR; URINE BILIRUBIN NEGATIVE (NEGATIVE); URINE COLOR YELLOW; URINE GLUCOSE (UA) 3+ (NEGATIVE); URINE KETONE NEGATIVE (NEGATIVE); URINE LEUK ESTERASE NEGATIVE (NEGATIVE); URINE NITRITE NEGATIVE (NEGATIVE); URINE PROTEIN TRACE (NEGATIVE)
[2024-05-29 21:34] LABS: BASO % 0.8 % (0-2.0); EOS % 3.7 % (0-4.5); HEMATOCRIT 36.9 % (35.4-49); HEMOGLOBIN 11.9 GM/dL (11.7-16.9); LYMPH % 15.9 % (8-40); MCH 28.3 pg (25.7-33.7); MCHC 32.1 g/dl (32.0-35.9); MEAN CELL VOLUME 88.2 fl (80-96); MEAN PLT VOLUME 9.2 fl (7.5-11.1); MONO % 8.8 % (3.8-10.2); NEUT % 70.8 % (42.8-82.8); PLATELET COUNT 203 10^3/uL (134-434); RBC 4.19 M/mm3 (4.00-5.60); RDW 16.8 % (11.9-15.9); WHITE BLOOD COUNT 7.4 K/mm3 (4.0-10.0)
[2024-05-29 21:57] LABS: POTASSIUM 4.2 mmol/L (3.5-5.1)
[2024-05-29 22:00] LABS: BLOOD UREA NITROGEN 38.7 mg/dL (7-18); CALCIUM 8.5 mg/dL (8.5-10.1); MAGNESIUM 2.2 mg/dL (1.8-2.4)
[2024-05-29 22:03] LABS: CREATININE 2.1 mg/dL (0.55-1.3)
[2024-05-29 22:04] LABS: PHOSPHOROUS 3.2 mg/dL (2.5-4.9)
[2024-05-29 22:05] LABS: BILIRUBIN,TOTAL 1.8 mg/dL (0.2-1); TOT PROT 6.4 g/dl (6.4-8.2)
[2024-05-30] MEDS: EMPAGLIFLOZIN (JARDIANCE) 10 MG TABLET PO SCH (06:44)
[2024-05-30 10:25] VITALS: RESP 18
[2024-05-30] MEDS: FUROSEMIDE 40 MG/4 ML INJECTABLE VIAL IVPUSH SCH ×2 (10:28→14:35)
[2024-05-30 19:03] LABS: EOS % 3.1 % (0-4.5); HEMATOCRIT 38.5 % (35.4-49); HEMOGLOBIN 12.3 GM/dL (11.7-16.9); LYMPH % 18.5 % (8-40); MCH 28.1 pg (25.7-33.7); MEAN CELL VOLUME 87.7 fl (80-96); MEAN PLT VOLUME 9.3 fl (7.5-11.1); MONO % 8.2 % (3.8-10.2); NEUT % 69.2 % (42.8-82.8); PLATELET COUNT 226 10^3/uL (134-434); RBC 4.39 M/mm3 (4.00-5.60); RDW 16.5 % (11.9-15.9); WHITE BLOOD COUNT 6.2 K/mm3 (4.0-10.0)
[2024-05-30 19:35] LABS: POTASSIUM 4.9 mmol/L (3.5-5.1)
[2024-05-30 19:37] LABS: ALBUMIN 3.2 g/dl (3.4-5.0); CALCIUM 8.8 mg/dL (8.5-10.1)
[2024-05-30 19:38] LABS: BLOOD UREA NITROGEN 33.6 mg/dL (7-18); MAGNESIUM 2.2 mg/dL (1.8-2.4)
[2024-05-30 19:41] LABS: CREATININE 1.9 mg/dL (0.55-1.3); PHOSPHOROUS 3.5 mg/dL (2.5-4.9)
[2024-05-30 19:42] LABS: BILIRUBIN,TOTAL 1.3 mg/dL (0.2-1); TOT PROT 6.9 g/dl (6.4-8.2)
[2024-05-30 23:07] VITALS: BMI 17.9
[2024-05-31 10:50] VITALS: TEMP 98.8
[2024-05-31 13:30] VITALS: BP 104/54; PULSE 88
== END 2024-05-31 14:33 | disposition home or self-care (01) | DRG 291 ==
LOC: JER 07:23 → JERBED 10:20 → J4W 05-28 21:36
PROVIDERS: ADMIT Internal Medicine; ATTEND Internal Medicine
DX: I13.0 Hypertensive heart and chronic kidney disease with heart failure and stage 1 through stage 4 chronic kidney disease, or unspecified chronic kidney disease (principal); E43 Unspecified severe protein-calorie malnutrition; I50.23 Acute on chronic systolic (congestive) heart failure; Z68.1 Body mass index [BMI] 19.9 or less, adult; I25.10 Atherosclerotic heart disease of native coronary artery without angina pectoris; E78.5 Hyperlipidemia, unspecified; E87.5 Hyperkalemia; I25.5 Ischemic cardiomyopathy; I48.0 Paroxysmal atrial fibrillation; Z95.1 Presence of aortocoronary bypass graft; N18.32 Chronic kidney disease, stage 3b
CPT/HCPCS: 0241U-QW; 36415; 71045-TC-FY; 76705-TC; 80053; 81003; 82247; 82248; 82550; 82962; 83010; 83516; 83735; 83880; 84100; 84484; 85025; 85027; 85045; 85610; 85730; 86704; 86709; 86803; 87340; 87517; 93005; 93010; 93306-TC; 97116-GP; 97162-GP; 99285-25